=== PATIENT | male | born 1985 | race Caucasian/White ===

== ENCOUNTER 2024-02-28 18:13 | Emergency (ER) | payer SELFPAY ==
[~2024-02-28] VITALS: Ht 185.4 cm; Wt 111.0 kg
[2024-02-28] MEDS ORDERED: LIDOcaine HCl 1% (Local Anesth.) 20 ML VIAL STI STA (19:20)
[2024-02-28] MEDS ORDERED: NEOMYCIN-BACITRACIN-POLYMYXIN 0.5 GM/PAK PAK TOP ONE (19:20)
[2024-02-28] MEDS ORDERED: POVIDONE IODINE 0.5 OZ/BTL TOP ONE (19:20)
[2024-02-28] MEDS ORDERED: Diph, Acellular Pertussis, Tet 0.5 ML/VIAL (Tdap) SDV IM ONE (19:20)
[2024-02-28] MEDS ORDERED: BUPIVACAINE HCL PF 0.5 % 50 MG/10 ML SDV STI ONE (19:25)
[2024-02-28] MEDS ORDERED: LIDOcaine HCl 1% (Local Anesth.) 20 ML VIAL IM STA (20:05)
[2024-02-28] MEDS ORDERED: cefTRIAXone SODIUM 1 GM/VIAL SDV IM ONE (20:05)
[2024-02-28] MEDS ORDERED: KEFLEX500 MG PO (20:19)
[2024-02-28 21:01] VITALS: BP 150/83
== END 2024-02-28 21:01 | disposition home or self-care (01) | DRG 605 ==
LOC: ED 18:13
PROC: 0HQGXZZ Repair Left Hand Skin, External Approach (ICD-10-PCS; principal; 2024-02-28)
DX: S61.213A Laceration without foreign body of left middle finger without damage to nail, initial encounter (principal); W29.8XXA Contact with other powered hand tools and household machinery, initial encounter
CPT/HCPCS: 90715

== ENCOUNTER 2024-04-30 04:43 | Emergency (ER) | payer SELFPAY ==
[~2024-04-30] VITALS: Ht 185.4 cm; Wt 113.0 kg
[~2024-04-30 04:43] MED LIST: KEFLEX500 MG PO
[2024-04-30 04:50] VITALS: BP 125/102
[2024-04-30] MEDS ORDERED: KETOROLAC TROMETHAMINE 30 MG/ML SDV IV ONE (04:55)
[2024-04-30 05:01] VITALS: BP 125/100
[2024-04-30 05:13] LABS: BASO% 0.6 % (0-3); EOS% 1.1 % (0-8); HEMATOCRIT 52.4 % (39.0-50.0); HEMOGLOBIN 17.3 g/dl (14.0-18.0); IMMATURE GRANULOCYTES 0.2 % (0.0-5.0); LYMPH% 35.7 % (15-41); MEAN CELL VOLUME 94.8 fL CALC (80.0-100.0); MEAN CORPUSCULAR HGB 31.3 pG CALC (26.0-32.0); MONO% 9.4 % (2-13); NEUT# 5.98 thou/uL (1.82-7.42); RED BLOOD COUNT 5.53 mill/uL (4.70-6.10); RED CELL DISTRI WIDTH 12.9 % (11.5-15.5)
[2024-04-30 05:31] LABS: ALBUMIN 4.9 g/dL (3.2-5.0); BILIRUBIN, TOTAL 0.9 mg/dL (0.2-1.3); CREATININE 1.1 mg/dL (0.7-1.3); POTASSIUM 4.1 mmol/l (3.5-5.1); TOTAL PROTEIN 8.6 g/dL (6.3-8.2)
[2024-04-30 07:16] VITALS: BP 96/57
[2024-04-30 08:24] LABS: URINE BLOOD DIPSTICK Negative (NEGATIVE); URINE COLOR Amber; URINE GLUCOSE - DIPSTICK Negative (NEGATIVE); URINE KETONE Negative (NEGATIVE); URINE LEUK ESTERASE Negative (NEGATIVE); URINE NITRITE - DIPSTICK Negative (Negative); URINE PROTEIN - DIPSTICK 100 mg/dL (NEG-TRACE); URINE SPECIFIC GRAVITY >=1.030
[2024-04-30 08:31] LABS: URINE RBC 0-2 RBC/hpf (0-5); URINE WBC 0-2 WBC/hpf (0-5)
[2024-04-30 08:32] LABS: URINE AMORPH SEDIMENT FEW hpf (NONE-FER); URINE BACTERIA RARE hpf; URINE MUCUS MANY hpf (NONE-FEW)
[2024-04-30 09:15] VITALS: BP 96/57
== END 2024-04-30 09:00 | disposition home or self-care (01) | DRG 730 ==
LOC: ED 04:43
PROVIDERS: Internal Medicine
DX: N50.811 Right testicular pain (principal); F17.210 Nicotine dependence, cigarettes, uncomplicated; Z98.52 Vasectomy status